=== PATIENT | male | born 1995 | race Caucasian/White ===

== ENCOUNTER 2019-10-25 17:50 | Emergency (ER) | payer OTHER ==
[~2019-10-25] VITALS: Ht 182.9 cm; Wt 64.9 kg
--- NOTE | 2019-10-25 18:28 | NUR ---
Patient ambulated with stable gait. Speech is clear, speaks in complete sentences. No acute neuro deficits noted. 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 Respiratory even and unlabored no cough no sob. No cardiovascular distress noted, all pulses palpable.
[2019-10-25] MEDS: IV NORMAL SALINE 1000 ML BAG IV ONE (18:53)
[2019-10-25 19:02] LABS: BASOPHILS % (AUTO) 0.5 % (0.0-2.0); EOSINOPHILS % (AUTO) 0.2 % (0.0-7.0); HEMOGLOBIN 15.2 g/dL (12.5-16.3); LYMPHOCYTES # (AUTO) 1.2 K/uL (20.0-40.0); LYMPHOCYTES % (AUTO) 16.1 % (20.5-51.5); MEAN CORPUSCULAR HEMOGLOBIN 28.4 uug (23.8-33.4); MEAN CORPUSCULAR HGB CONC 35 g/dL (32.5-36.3); MEAN CORPUSCULAR VOLUME 82.3 fL (73.0-96.2); MONOCYTES # (AUTO) 0.2 K/uL (2.0-10.0); MONOCYTES % (AUTO) 2.4 % (0.0-11.0); NEUTROPHILS # (AUTO) 5.9 K/uL (1.8-8.9); NEUTROPHILS % (AUTO) 80.8 % (38.5-71.5); PLATELET COUNT (AUTO) 193 K/uL (152-348); RED BLOOD CELL COUNT(AUTO) 5.34 MIL/uL (4.06-5.63); WHITE BLOOD COUNT (AUTO) 7.3 K/uL (3.6-10.2)
[2019-10-25 19:11] LABS: CREATININE 0.8 mg/dL (0.6-1.3); POTASSIUM 3.8 mmol/L (3.5-5.1)
[2019-10-25 19:17] LABS: BILIRUBIN,DIRECT 0.1 mg/dL (0.0-0.2); BILIRUBIN,TOTAL 0.3 mg/dL (0.2-1.0); TOTAL PROTEIN, SERUM 8.2 g/dL (6.4-8.2)
[2019-10-25] MEDS: METHADONE HCL 10 MG TABLET PO ONE (19:30)
--- NOTE | 2019-10-25 19:38 | NUR ---
Pt provided urine sample, sent to lab.
[2019-10-25 20:02] LABS: ETHANOL < 3 MG/DL (0-0)
[2019-10-25 20:03] LABS: *AMPHETAMINE, URINE NEGATIVE (NEGATIVE); *BARBITURATE, URINE NEGATIVE (NEGATIVE); *CANNABINOID, URINE NEGATIVE (NEGATIVE); *COCCAINE, URINE POSITIVE (NEGATIVE); *OPIATE, URINE NEGATIVE (NEGATIVE); *PHENCYCLIDINE SCREEN,URINE NEGATIVE (NEGATIVE)
[2019-10-25] MEDS ORDERED: CLONIDINE HCL 0.1 MG TABLET ONE (20:07)
[2019-10-25] MEDS: CLONIDINE HCL 0.1 MG TABLET PO ONE (20:08)
--- NOTE | 2019-10-25 23:03 | NUR ---
IV removed. Catheter intact and site benign. Pressure and 4x4 gauze applied to site. No bleeding noted. Patient discharged to home in stable conditon. Written and verbal after care instructions given. Patient verbalizes understanding of instructions. Patient ambulating with steady gait
[2019-10-25 23:05] VITALS: BP 136/85
== END 2019-10-25 23:03 | disposition home or self-care (01) ==
LOC: ER 17:52
DX: F11.23 Opioid dependence with withdrawal (principal)
CPT/HCPCS: 36415; 80048; 80076; 80307; 85025; 93005; 99284; G0480; A4663; J7030